=== PATIENT | female | born 1975 | race Caucasian/White ===

== ENCOUNTER 2017-04-09 01:01 | Emergency (ER) | payer OTHER ==
[2017-04-09] MEDS ORDERED: ASPIRIN 81 MG CHEWABLE TABLETS PO ONE (01:22)
--- NOTE | 2017-04-09 01:22 | PDOC ---
History of Present Illness - General Chief Complaint: Chest Pain Stated Complaint: LFT ARM NUMBNESS AND PAIN Time Seen by Provider: 04/09/17 01:11 History Source: Patient - History of Present Illness Initial Comments: 04/09/17 01:23 41 year old female c/o left arm and chest burning sensation and pain since Sunday (2 days ago) after taking Ergocalciferol 50,000units. patient denies NVD , abdominal pain, diaphoresis, sob, cough. no pmhx Past History - Past Medical History Allergies/Adverse Reactions: Allergies Allergy/AdvReac Type Severity Reaction Status Date / Time No Known Allergies Allergy Verified 04/09/17 01:19 Home Medications: Ambulatory Orders Ergocalciferol [Drisdol -] 50,000 units PO WEEKLY 04/09/17 Anemia: No Asthma: No Cancer: No Cardiac Disorders: No CVA: No COPD: No CHF: No Dementia: No Diabetes: No GI Disorders: No Disorders: No HTN: No Hypercholesterolemia: No Liver Disease: No Seizures: No Thyroid Disease: No - Surgical History Abdominal Surgery: No Appendectomy: No Cardiac Surgery: No Cholecystectomy: No Lung Surgery: No Neurologic Surgery: No Orthopedic Surgery: No - Psycho/Social/Smoking Cessation Hx Suicidal Ideation: No Smoking History: Never smoked Have you smoked in the past 12 months: No Information on smoking cessation initiated: No Hx Alcohol Use: No Drug/Substance Use Hx: No Substance Use Type: None Hx Substance Use Treatment: No Cardiac Specific PMH - Complaint Specific PMHX Pacemaker: No Review of Systems - Review of Systems Able to Perform ROS?: Yes Is the patient limited Citizen Of [place] proficient: No Cardiac (ROS): Yes: Chest Pain *Physical Exam - Vital Signs Last Vital Signs Temp Pulse Resp BP Pulse Ox 98.1 F 78 20 106/62 99 04/09/17 01:19 04/09/17 01:19 04/09/17 01:19 04/09/17 01:04/09/17 01:19 - Physical Exam General Appearance: Yes: Appropriately Dressed Respiratory/Chest: positive: Chest Tender (reproducible), Lungs Clear, Normal Breath Sounds Cardiovascular: positive: Regular Rhythm, Regular Rate, S1, S2 Gastrointestinal/Abdominal: positive: Normal Bowel Sounds, Soft Extremity: positive: Normal Capillary Refill, Normal Inspection, Normal Range of Motion Integumentary: positive: Normal Color, Dry, Warm Neurologic: positive: Fully Oriented, Alert, Normal Mood/Affect Heart Score/ECG Review - History History: Slightly suspicious - Electrocardiogram EKG: Normal - Age Age: </= 45 - Risk Factors Based on the list above the patient has:: No risk factors known - Troponin Troponin: </= normal limit - Score Heart Score - Total: 0 - ECG Intrepretation Rhythm: Regular Rhythm Comment:: 04/09/17 01:37 NSR 70bpm ED Treatment Course - LABORATORY CBC & Chemistry Diagram: 04/09/17 01:26 04/09/17 01:26 - ADDITIONAL ORDERS Additional order review: Laboratory Results 04/09/17 04/09/17 04/09/17 01:26 01:26 01:26 INR 1.05 Sodium 138 Potassium 4.0 Chloride 103 Carbon Dioxide 28 Anion Gap 7 L BUN 20 H Creatinine 0.8 Creat Clearance w eGFR > 60 Random Glucose 94 Calcium 8.7 Magnesium 2.0 Total Bilirubin 0.2 AST 15 ALT 21 Alkaline Phosphatase 91 Creatine Kinase 93 Troponin I < 0.02 Total Protein 6.9 Albumin 3.8 Serum , Qual Negative 04/09/17 01:26 RBC 3.67 MCV 87.9 MCHC 33.5 RDW 13.0 MPV 8.3 Neutrophils % 51.1 Lymphocytes % 41.5 H Monocytes % 5.7 Eosinophils % 1.5 Basophils % 0.2 - RADIOLOGY Radiology Studies Ordered: Category Date Time Status CHEST PA & LAT [RAD] Stat Radiology 04/09/17 01:22 Taken Chest X-Ray Result: No Infiltrates - Medications Given in the ED: ED Medications Discontinued Medications Generic Name Dose Route Start Last Admin Trade Name Layla PRN Reason Stop Dose Admin Aspirin 162 mg 04/09/17 01:22 04/09/17 01:34 Asa - PO 04/09/17 01:23 162 mg ONCE ONE Administration Progress Note - Progress Note Progress Note: A: chest pain P: cbc cmp cardiac EKG: NSR: 70 BUn elevated. NS IVF *DC/Admit/Observation/Transfer Diagnosis at time of Disposition: Chest pain Qualifiers: Chest pain type: unspecified Qualified Code(s): R07.9 - Chest pain, unspecified - Referrals Referrals: Paige Brambila MD [Primary Care Provider] - - Patient Instructions Printed Discharge Instructions: DI for Atypical Chest Pain Additional Instructions: follow up with your doctor as soon as possible. stop ergocalciferol now. take tylenol or ibuprofen every 6 hours as needed for pain
[2017-04-09 01:26] VITALS: TEMP 98.1; BMI 25.0
[2017-04-09] MEDS ORDERED: ASPIRIN 81 MG CHEWABLE TABLETS ONE (01:34)
[2017-04-09 01:38] LABS: BASOPHIL 0.2 % (0-2.0); EOSINOPHIL 1.5 % (0-4.5); MCH 29.5 pg (25.7-33.7); MCHC 33.5 g/dl (32.0-36.0); MEAN CELL VOLUME 87.9 fl (80-96); MEAN PLT VOLUME 8.3 fl (7.5-11.1); NEUTROPHILS 51.1 % (42.8-82.8); PLATELET COUNT 242 K/MM3 (134-434); WHITE BLOOD COUNT 8.7 K/mm3 (4.0-10.0)
[2017-04-09 01:58] LABS: INR 1.05 (0.82-1.09); PROTHROMBIN TIME (PATIENT) 11.6 SEC (9.98-11.88)
[2017-04-09 02:09] LABS: ALBUMIN 3.8 g/dl (3.4-5.0); ANION GAP 7 (8-16); BILIRUBIN,TOTAL 0.2 mg/dL (0.2-1.0); CALCIUM 8.7 mg/dL (8.5-10.1); CO2 28 mmol/L (21-32); CREATININE 0.8 mg/dL (0.55-1.02); GLUCOSE,RANDOM 94 mg/dL (74-106); SGOT/AST 15 U/L (15-37); SGPT/ALT 21 U/L (12-78); TOT PROT 6.9 g/dl (6.4-8.2)
[2017-04-09 02:11] LABS: ALK PHOS 91 U/L (45-117); CPK 93 IU/L (26-192); TROPONIN I < 0.02 ng/ml (0.00-0.05)
[2017-04-09] MEDS ORDERED: SODIUM CHLORIDE 1,000 ML IV STA (02:22)
[2017-04-09] MEDS ORDERED: IBUPROFEN 600 MG TABLET (FP) PO ONE ×2 (03:03→03:07)
--- NOTE | 2017-04-09 03:13 | PDOC ---
*Physical Exam - Vital Signs Last Vital Signs Temp Pulse Resp BP Pulse Ox 98.1 F 78 20 106/62 99 04/09/17 01:19 04/09/17 01:19 04/09/17 01:19 04/09/17 01:19 04/09/17 01:19 ED Treatment Course - LABORATORY CBC & Chemistry Diagram: 04/09/17 01:26 04/09/17 01:26 - ADDITIONAL ORDERS Additional order review: Laboratory Results 04/09/17 04/09/17 04/09/17 01:26 01:26 01:26 INR 1.05 Sodium 138 Potassium 4.0 Chloride 103 Carbon Dioxide 28 Anion Gap 7 L BUN 20 H Creatinine 0.8 Creat Clearance w eGFR > 60 Random Glucose 94 Calcium 8.7 Magnesium 2.0 Total Bilirubin 0.2 AST 15 ALT 21 Alkaline Phosphatase 91 Creatine Kinase 93 Troponin I < 0.02 Total Protein 6.9 Albumin 3.8 Serum , Qual Negative 04/09/17 01:26 RBC 3.67 MCV 87.9 MCHC 33.5 RDW 13.0 MPV 8.3 Neutrophils % 51.1 Lymphocytes % 41.5 H Monocytes % 5.7 Eosinophils % 1.5 Basophils % 0.2 - RADIOLOGY Chest X-Ray Result: No Infiltrates - Medications Given in the ED: ED Medications Discontinued Medications Generic Name Dose Route Start Last Admin Trade Name Layla PRN Reason Stop Dose Admin Aspirin 162 mg 04/09/17 01:22 04/09/17 01:34 Asa - PO 04/09/17 01:23 162 mg ONCE ONE Administration Medical Decision Making - Medical Decision Making 04/09/17 03:06 Agree with ALONSO Peace's history, assessment and plan 41yo F p/w chest burning s/p taking ergocalceferol 2 days ago. Denies associated symptoms. Burning likely 2/2 to medication but will check a troponin to eval for ACS. Will also obtain CXR to evaluate for structural disease or bony disease -if lab/CXR negative pt can f/u with Dr. Suarez within 1-2 days - pt and her 2 sons are amenable to plan *DC/Admit/Observation/Transfer Diagnosis at time of Disposition: Chest pain Qualifiers: Chest pain type: unspecified Qualified Code(s): R07.9 - Chest pain, unspecified - Referrals Referrals: Paige Brambila MD [Primary Care Provider] - - Patient Instructions Printed Discharge Instructions: DI for Atypical Chest Pain Additional Instructions: follow up with your doctor as soon as possible. stop ergocalciferol now. take tylenol or ibuprofen every 6 hours as needed for pain - Post Discharge Activity
[2017-04-09 03:29] VITALS: BP 122/69; PULSE 72
--- NOTE | 2017-04-09 13:35 | EKG ---
Test Reason : Blood Pressure : / mmHG Vent. Rate : 070 BPM Atrial Rate : 070 BPM P-R Int : 126 ms QRS Dur : 076 ms QT Int : 382 ms P-R-T Axes : 036 081 050 degrees QTc Int : 412 ms NORMAL SINUS RHYTHM NORMAL ECG NO PREVIOUS ECGS AVAILABLE Confirmed by VIVEK NUÑEZ MD ([id number]) on 04/09/2017 1:34:57 PM Referred By: Confirmed By:VIVEK NUÑEZ MD
== END 2017-04-09 03:33 | disposition home or self-care (01) ==
LOC: JER 01:01
PROC: 3E0337Z Introduction of Electrolytic and Water Balance Substance into Peripheral Vein, Percutaneous Approach (ICD-10-PCS; principal; 2017-04-09)
DX: R07.9 Chest pain, unspecified (principal)
CPT/HCPCS: 36415; 71020-TC; 80053; 83735; 84484; 84703; 85025; 85610; 93005; 93010; 96360; 99284-25